=== PATIENT | male | born 1995 | race Caucasian/White ===

== ENCOUNTER 2017-05-18 13:34 | Emergency (ER) | payer MEDICAID ==
[~2017-05-18] VITALS: Ht 162.6 cm; Wt 59.0 kg
[~2017-05-18 13:34] MED LIST: BUPR200T2; DESV50TA4 PO; QUET400T PO; REM15
[2017-05-18 13:49] VITALS: BP_SYST 119
[2017-05-18] MEDS ORDERED: IBUPROFEN 800 MG TABLET PO ONE (15:15)
[2017-05-18] MEDS ORDERED: PREDNISONE 20 MG TABLET PO ONE (15:15)
[2017-05-18 15:40] VITALS: BP_SYST 125
[2017-05-18 15:47] LABS: STREPTOCOCCUS A SCREEN (RAPID) NEGATIVE (NEGATIVE)
[2017-05-18 16:05] LABS: INFLUENZA A&B ANTIGEN SCREEN NEGATIVE FOR A & B (NEGATIVE)
== END 2017-05-18 15:40 | disposition home or self-care (01) ==
LOC: SED 13:34
DX: J02.9 Acute pharyngitis, unspecified (principal); F17.200 Nicotine dependence, unspecified, uncomplicated; Z71.6 Tobacco abuse counseling; Z79.899 Other long term (current) drug therapy
CPT/HCPCS: 36415; 86403; 86710; 87081; 99284; J7512

== ENCOUNTER 2017-05-29 17:58 | Emergency (ER) | payer MEDICAID ==
[~2017-05-29] VITALS: Ht 162.6 cm; Wt 59.0 kg
[2017-05-29 18:05] VITALS: BP_SYST 140
[2017-05-29] MEDS ORDERED: SULFAMETHOXAZOLE/TRIMETHOPR DS 1 TABLET PO ONE (18:30)
[2017-05-29] MEDS ORDERED: cefTRIAXone 1 GM VIAL IM ONE (18:30)
[2017-05-29 19:00] VITALS: BP_SYST 112
== END 2017-05-29 19:00 | disposition home or self-care (01) ==
LOC: SED 17:58
DX: L03.213 Periorbital cellulitis (principal); F31.9 Bipolar disorder, unspecified; Z79.899 Other long term (current) drug therapy
CPT/HCPCS: 96372; 99283; J0696

== ENCOUNTER 2017-05-31 19:38 | Emergency (ER) | payer MEDICAID ==
[~2017-05-31] VITALS: Ht 162.6 cm; Wt 59.0 kg
[2017-05-31 19:46] VITALS: BP_SYST 124
--- NOTE | 2017-05-31 22:00 | NUR ---
Patient called for bed placement and not found in ED waiting room.
--- NOTE | 2017-05-31 22:05 | NUR ---
Patient called for bed placement, not found in ED waiting room.
--- NOTE | 2017-05-31 22:10 | NUR ---
Patient not found inside ED waiting room, or outside ED doors. Patient left without being seen.
== END 2017-05-31 22:10 | disposition left against medical advice (07) ==
LOC: SED 19:38
DX: R68.89 Other general symptoms and signs (principal); Z53.21 Procedure and treatment not carried out due to patient leaving prior to being seen by health care provider

== ENCOUNTER 2017-10-25 09:19 | Emergency (ER) | payer SELFPAY ==
[~2017-10-25] VITALS: Ht 172.7 cm; Wt 54.4 kg
[2017-10-25 09:19] VITALS: BP_SYST 137
[2017-10-25] MEDS ORDERED: KETOROLAC TROMETHAMINE 30 MG VIAL IM ONE (09:30)
[2017-10-25] MEDS ORDERED: MORPHINE 4 MG/ML INJ. SYRINGE IM ONE (10:30)
[2017-10-25] MEDS ORDERED: NACL 0.9% 1,000 ML IV ONE (11:15)
[2017-10-25 12:56] LABS: BARBITURATE, URINE NEGATIVE (NEG <=200); BENZODIAZEPINE, URINE NEGATIVE (NEG <=150); CANNABINOID, URINE POSITIVE (NEG <=50); COCAINE, URINE NEGATIVE (NEG <=150); METHAMPHETAMINES SCREEN,URINE POSITIVE (NEG <=500); OPIATE, URINE POSITIVE (NEG <=100); PHENCYCLIDINE SCREEN,URINE NEGATIVE (NEG <=25); UR TRICYCLIC ANTIDEPRESSANTS NEGATIVE (NEG <=300); URINE AMPHETAMINE POSITIVE (NEG <=500); URINE METHADONE NEGATIVE (NEG <=200); URINE OXYCODONE SCREEN NEGATIVE (NEG <=100); URINE PROPOXYPHENE SCREEN NEGATIVE (NEG <=300)
[2017-10-25 13:05] VITALS: BP_SYST 130
== END 2017-10-25 13:05 | disposition home or self-care (01) ==
LOC: SED 09:19
DX: S32.019A Unspecified fracture of first lumbar vertebra, initial encounter for closed fracture (principal); R03.0 Elevated blood-pressure reading, without diagnosis of hypertension; F19.10 Other psychoactive substance abuse, uncomplicated; F31.9 Bipolar disorder, unspecified; Z79.899 Other long term (current) drug therapy; W17.89XA Other fall from one level to another, initial encounter; Y93.89 Activity, other specified; Y92.009 Unspecified place in unspecified non-institutional (private) residence as the place of occurrence of the external cause; Y99.8 Other external cause status
CPT/HCPCS: 72128; 80307; 72131; 96372; 99285; J1885; J2270; J7030

== ENCOUNTER 2019-01-14 13:08 | Emergency (ER) | payer MEDICAID ==
[~2019-01-14] VITALS: Ht 167.6 cm; Wt 68.0 kg
[2019-01-14 13:15] VITALS: BP_SYST 129
--- NOTE | 2019-01-14 13:15 | NUR ---
Patient to ER bed 5 to gown for evaluation. Side rails up.
--- NOTE | 2019-01-14 13:31 | NUR ---
ER Dr. Velasquez at bedside examining patient.
--- NOTE | 2019-01-14 13:42 | NUR ---
Patient is awake, alert, and oriented x4. Mother is at bedside. Patient states he has had a cough for 3 weeks, used to be productive, but is now dry. He denies any other issues.
[2019-01-14 14:30] VITALS: BP_SYST 128
--- NOTE | 2019-01-14 14:30 | NUR ---
Patient given written and verbal discharge instructions and verbalizes understanding. ER MD discussed with patient the results and treatment provided. Patient in stable condition. ID arm band removed. Rx of Tessalon perles& Albuterol given. Patient educated on pain management and to follow up with PMD. Pain Scale 0/10 . Opportunity for questions provided and answered. Medication side effect fact sheet provided.
== END 2019-01-14 14:30 | disposition home or self-care (01) ==
LOC: SED 13:08
DX: J06.9 Acute upper respiratory infection, unspecified (principal); F31.9 Bipolar disorder, unspecified
CPT/HCPCS: 71045; 99283

== ENCOUNTER 2021-01-03 19:23 | Emergency (ER) | payer MEDICAID ==
[~2021-01-03] VITALS: Ht 165.1 cm; Wt 61.2 kg
[~2021-01-03 19:23] MED LIST changes: +MIRT-114; -REM15
[2021-01-03 19:40] VITALS: BP_SYST 119
--- NOTE | 2021-01-03 19:40 | NUR ---
PT TO REMAIN IN ER TENT UNTIL ER BED BECOMES AVAILABLE.
--- NOTE | 2021-01-03 20:00 | NUR ---
Portable CXR done outside in tent.
[2021-01-03 22:51] VITALS: BP_SYST 119
--- NOTE | 2021-01-03 22:52 | NUR ---
Patient given written and verbal discharge instructions and verbalizes understanding. ER MD discussed with patient the results and treatment provided. Patient in stable condition. ID arm band removed. Patient educated on pain management and to follow up with PMD. Pain Scale 0/10. Opportunity for questions provided and answered. Medication side effect fact sheet provided.
== END 2021-01-03 22:52 | disposition home or self-care (01) ==
LOC: SED 19:23
DX: F15.988 Other stimulant use, unspecified with other stimulant-induced disorder (principal); F12.90 Cannabis use, unspecified, uncomplicated; F31.9 Bipolar disorder, unspecified; Z59.00 Homelessness unspecified; Z20.822 Contact with and (suspected) exposure to COVID-19; Z79.899 Other long term (current) drug therapy
CPT/HCPCS: 71045; 99283

== ENCOUNTER 2021-01-05 16:15 | Emergency (ER) | payer MEDICAID, SELFPAY ==
[~2021-01-05] VITALS: Ht 167.6 cm; Wt 61.2 kg
[2021-01-05 16:20] VITALS: BP_SYST 112
--- NOTE | 2021-01-05 16:20 | NUR ---
Patient to ER TENT 1 for evaluation. Side rails up.
--- NOTE | 2021-01-05 16:25 | NUR ---
PT CAME IN FROM HOME C/O WORSENING SOB, COUGH, WEAKNESS, SWEATING, NAUSEA AND DEWEY, BODY ACHES SINCE 01/03/21 WHEN HE WAS SEEN HERE FOR POSSIBLE COVID EXPOSURE. PT IS AAOX4, AMBULATORY, V/S STABLE. ADMITS TO USING METHAMPHETAMINE. DENIES FEVER. DENIES VOMITTING OR DIARRHEA.
--- NOTE | 2021-01-05 16:34 | NUR ---
ER DR. ECHEVERRIA EXAMINING PT
[2021-01-05] MEDS ORDERED: ZIT250 PO (16:43)
[2021-01-05] MEDS ORDERED: IBUP-1969 PO (16:43)
[2021-01-05] MEDS ORDERED: ACET325T53 PO (16:43)
[2021-01-05] MEDS ORDERED: ALBMDI INH (16:43)
[2021-01-05] MEDS ORDERED: AMOX-426 PO (16:43)
[2021-01-05] MEDS ORDERED: IBUPROFEN 600 MG TABLET PO ONE (16:45)
[2021-01-05] MEDS ORDERED: ACETAMINOPHEN 325 MG TABLET PO ONE (16:45)
[2021-01-05] MEDS ORDERED: AMOXICILLIN/CLAVULANATE POTASSIUM 875 MG TABLET PO ONE (16:45)
--- NOTE | 2021-01-05 16:52 | NUR ---
Covid swab collected and sent to lab.
--- NOTE | 2021-01-05 16:53 | NUR ---
Pt given turkey sandwich, chips, banana, fruit cup, and apple juice.
--- NOTE | 2021-01-05 16:59 | NUR ---
Patient given written and verbal discharge instructions and verbalizes understanding. Given copies of tests performed during visit. Patient is awake, alert and oriented. Ambulatory with steady gait. Refuses offer of senior care placement. Given list of available shelters in surrounding areas. Clothing is appropriate to weather.
[2021-01-05 17:01] VITALS: BP_SYST 112
== END 2021-01-05 16:59 | disposition home or self-care (01) ==
LOC: SED 16:15
DX: R05.9 Cough, unspecified (principal); Z20.822 Contact with and (suspected) exposure to COVID-19; F31.9 Bipolar disorder, unspecified; Z79.899 Other long term (current) drug therapy
CPT/HCPCS: 99284; C9803; U0003

== ENCOUNTER → 2021-04-23 | Emergency (ER) | payer MEDICAID, SELFPAY ==
[~2021-04-23] VITALS: Ht 165.1 cm; Wt 56.7 kg
[~2021-04-23] MED LIST changes: +ACET325T53 PO; +ALBMDI INH; +AMOX-426 PO; +IBUP-1969 PO; +ZIT250 PO
[2021-04-23 15:46] VITALS: BP_SYST 126
== END | disposition left against medical advice (07) ==
LOC: SED 15:37
DX: R21 Rash and other nonspecific skin eruption (principal); Z53.21 Procedure and treatment not carried out due to patient leaving prior to being seen by health care provider